=== PATIENT | male | born 1970 | race Caucasian/White ===

== ENCOUNTER 2019-05-08 21:46 | Inpatient (IN) | payer BC ==
[2019-05-08 22:07] LABS: Glucose,Whole Blood 246 mg/dL (75-99)
--- NOTE | 2019-05-08 22:24 | ED ---
Chest Pain HPI - General Chief Complaint: Chest Pain Stated Complaint: Chest Pain, Syncope Time Seen by Provider: 05/08/19 22:07 Source: patient, RN notes reviewed, old records reviewed Mode of arrival: ambulatory Limitations: no limitations - History of Present Illness Initial Comments: This is a 49-year-old male the ER for evaluation with high blood pressure high cholesterol Y. Patient is today for evaluation with coughing. Coughing fit that was a syncope and now complaining of chest pain. Patient has no shortness of breath.No diaphoresis. Patient has no recent cardiac evaluation. Patient's chest pain is been persistent no trauma to that area. MD Complaint: chest pain, other (Coughing leading to syncope) -: days(s) Onset: during rest Pain Location: left chest Severity: mild Severity scale (1-10): 1 Quality: tightness, heaviness Consistency: constant Improves With: nothing Anginal Symptoms: dyspnea Other Symptoms: cough Treatments Prior to Arrival: none - Related Data Home Medications Medication Instructions Recorded Confirmed Allopurinol [Zyloprim] 300 mg PO DAILY 05/08/19 05/08/19 Atorvastatin [Lipitor] 40 mg PO HS 05/08/19 05/08/19 Fenofibrate Nanocrystallized 145 mg PO DAILY 05/08/19 05/08/19 [Fenofibrate] Levothyroxine Sodium [Synthroid] 75 mcg PO DAILY 05/08/19 05/08/19 Metoprolol Succinate (ER) [Toprol 50 mg PO DAILY 05/08/19 05/08/19 Xl] RABEprazole SODIUM [Aciphex] 20 mg PO DAILY 05/08/19 05/08/19 amLODIPine BESYLATE/BENAZEPRIL 1 cap PO DAILY 05/08/19 05/08/19 [Lotrel 10-40 MG] Allergies Allergy/AdvReac Type Severity Reaction Status Date / Time No Known Allergies Allergy Verified 05/08/19 22:18 Review of Systems ROS Statement: Those systems with pertinent positive or pertinent negative responses have been documented in the HPI. ROS Other: All systems not noted in ROS Statement are negative. EKG Findings - EKG Comments: EKG Findings:: EKG shows sinus rhythm rate of 79, PA 180, QRS 90, QTc 449 Past Medical History Past Medical History: Diabetes Mellitus, GERD/Reflux, Hyperlipidemia, Hypertension History of Any Multi-Drug Resistant Organisms: None Reported Additional Past Surgical History / Comment(s): ENT Past Psychological History: No Psychological Hx Reported Smoking Status: Never smoker Past Alcohol Use History: None Reported Past Drug Use History: Marijuana General Exam Limitations: no limitations General appearance: alert, in no apparent distress Head exam: Present: atraumatic, normocephalic, normal inspection Eye exam: Present: normal appearance, PERRL, EOMI. Absent: scleral icterus, conjunctival injection, periorbital swelling ENT exam: Present: normal exam, mucous membranes moist Neck exam: Present: normal inspection. Absent: tenderness, meningismus, lymphadenopathy Respiratory exam: Present: normal lung sounds bilaterally. Absent: respiratory distress, wheezes, rales, rhonchi, stridor Cardiovascular Exam: Present: regular rate, normal rhythm, normal heart sounds. Absent: systolic murmur, diastolic murmur, rubs, gallop, clicks GI/Abdominal exam: Present: soft, normal bowel sounds. Absent: distended, tenderness, guarding, rebound, rigid Extremities exam: Present: normal inspection, full ROM, normal capillary refill. Absent: tenderness, pedal edema, joint swelling, calf tenderness Back exam: Present: normal inspection Neurological exam: Present: alert, oriented X3, CN II-XII intact Psychiatric exam: Present: normal affect, normal mood Skin exam: Present: warm, dry, intact, normal color. Absent: rash Course Vital Signs 05/08/19 05/08/19 05/08/19 21:47 23:00 23:04 Temperature 98 F Pulse Rate 80 80 80 Respiratory 18 18 17 Rate Blood Pressure 123/82 120/84 120/84 O2 Sat by Pulse 99 94 L 96 Oximetry 05/08/19 05/08/19 23:30 23:40 Temperature Pulse Rate 80 82 Respiratory 19 17 Rate Blood Pressure 114/90 113/76 O2 Sat by Pulse 94 L 95 Oximetry - Reevaluation(s) Reevaluation #1: 05/09/19 00:44 Medical records reviewed Reevaluation #2: 05/09/19 00:44 Patient similar chest pain Reevaluation #3: 05/09/19 00:44 No recurrent syncope Chest Pain MDM - MDM 50 male the ER for evaluation of syncopal event after coughing episode he did hit his had no significant headache. His had chest pain persistent chest no trauma to the area. History of high blood pressure high cholesterol admit for cardiac observation Disposition Clinical Impression: Chest pain, Syncope Disposition: ADMITTED IP TO THIS HOSP Condition: Undetermined Is patient prescribed a controlled substance at d/c from ED?: No Referrals: Bhumi Choi DO [Primary Care Provider] - 1-2 days
[2019-05-08 22:26] LABS: Basophils # (A) 0.1 k/uL (0-0.2); Basophils % (A) 1 %; Eosinophils # (A) 0.5 k/uL (0-0.7); Eosinophils % (A) 5 %; HCT 39.5 % (39.0-53.0); HGB 13.2 gm/dL (13.0-17.5); Lymphocytes # (A) 2.5 k/uL (1.0-4.8); Lymphocytes % (A) 26 %; MCH 31.4 pg (25.0-35.0); MCHC 33.4 g/dL (31.0-37.0); MCV 93.9 fL (80.0-100.0); Mean Platelet Volume 6.6; Monocytes # (A) 0.6 k/uL (0-1.0); Monocytes % (A) 6 %; Neutrophils # (A) 5.5 k/uL (1.3-7.7); Neutrophils % (A) 59 %; Platelet Count 306 k/uL (150-450); WBC 9.4 k/uL (3.8-10.6)
[2019-05-08 22:38] LABS: ALT 24 U/L (21-72); AST 37 U/L (17-59); African American GFR (CKD) >90 (>60 ml/min/1.73 sqM); Albumin 4.4 g/dL (3.5-5.0); Alkaline Phosphatase 41 U/L (38-126); Anion Gap 15 mmol/L; Blood Urea Nitrogen 12 mg/dL (9-20); Calcium 9.4 mg/dL (8.4-10.2); Carbon Dioxide 20 mmol/L (22-30); Chloride 94 mmol/L (98-107); Glucose 252 mg/dL (74-99); Magnesium 1.8 mg/dL (1.6-2.3); Non-African American GFR(CKD) 84 (>60 ml/min/1.73 sqM); Potassium 4.1 mmol/L (3.5-5.1); Sodium 129 mmol/L (137-145); Total Bilirubin 0.6 mg/dL (0.2-1.3); Total Protein 7.1 g/dL (6.3-8.2)
[2019-05-08 22:41] LABS: INR 0.9 (<1.2); Partial Thromboplastin Time 28.3 sec (22.0-30.0); Prothrombin Time 10.2 sec (9.0-12.0)
[2019-05-08 22:46] LABS: D-Dimer 1.78 mg/L FEU (<0.60)
--- NOTE | 2019-05-08 22:49 | XR ---
EXAM: XR Chest, 2 Views CLINICAL HISTORY: ITS.REASON XR Reason: Chest Pain TECHNIQUE: Frontal and lateral views of the chest. COMPARISON: No relevant prior studies available. FINDINGS: Lungs: Mild perihilar/infrahilar opacities. Pleural space: No significant pleural effusion or pneumothorax. Heart: Unremarkable. Mediastinum: Unremarkable. Bones/joints: No acute fracture. Other: Air-fluid levels noted in the upper abdomen. IMPRESSION: Mild perihilar/infrahilar opacities. Correlate clinically regarding inflammatory/infectious process.
--- NOTE | 2019-05-08 23:58 | CT ---
EXAM: CT Angiography Chest With Intravenous Contrast CLINICAL HISTORY: ITS.REASON CT Reason: Pain TECHNIQUE: Axial computed tomographic angiography images of the chest with intravenous contrast using pulmonary embolism protocol. CTDI is 9.2 mGy and DLP is 397.8 mGy-cm. This CT exam was performed using one or more of the following dose reduction techniques: automated exposure control, adjustment of the mA and/or kV according to patient size, and/or use of iterative reconstruction technique. MIP reconstructed images were created and reviewed. COMPARISON: No relevant prior studies available. FINDINGS: Pulmonary arteries: No evidence of pulmonary embolism. Aorta: No evidence of aortic aneurysm or dissection. Atherosclerotic disease. Lungs: Bilateral peribronchial thickening. No consolidation. Pleural space: No significant effusion. No pneumothorax. Heart: Unremarkable. Bones/joints: Ankylosis at T9-10. Soft tissues: Unremarkable as visualized. Lymph nodes: Nonspecific stranding in the upper abdomen with prominent mesenteric lymph nodes. Small mediastinal and hilar lymph nodes. Liver: Heterogeneous liver parenchyma. Gallbladder and bile ducts: Contracted gallbladder. Pancreas: Dilated pancreatic duct, cannot exclude obstructing stone or mass. Kidneys and ureters: Nonspecific bilateral perinephric stranding. IMPRESSION: 1. No evidence of PE or aortic dissection. 2. Bilateral peribronchial thickening. No consolidation. 3. Nonspecific stranding in the upper abdomen with prominent mesenteric lymph nodes. Differential considerations include mesenteric adenitis/panniculitis, pancreatitis, or other etiology 4. Dilated pancreatic duct, cannot exclude obstructing stone or mass. MRCP/ERCP can further evaluate if indicated. 5. Heterogeneous liver parenchyma. MRI may be considered if there is concern for neoplastic process.
[2019-05-09] MEDS ORDERED: NITROGLYCERIN SL TABS 0.4 MG TAB SUBLINGUAL PRN (00:38)
[2019-05-09] MEDS ORDERED: HEPARIN SODIUM,PORCINE 5,000 UNIT/ML 1 ML VIAL IV ONE (00:38)
[2019-05-09] MEDS ORDERED: ASPIRIN 81 MG PO STA (00:38)
[2019-05-09] MEDS ORDERED: HEPARIN SODIUM,PORCINE 5,000 UNIT/ML 1 ML VIAL IV PRN (00:38)
[2019-05-09] MEDS: SODIUM CHLORIDE 0.9% 1,000 ML IV SCH ×3 (01:01→21:52)
[2019-05-09] MEDS: HEPARIN SOD,PORK IN 0.45% NACL 25,000 UNIT in 0.45% NACL 1 250ML.BAG IV SCH ×2 (01:10→21:59)
--- NOTE | 2019-05-09 01:38 | CT ---
EXAM: CT Head Without Intravenous Contrast CLINICAL HISTORY: ITS.REASON CT Reason: pain TECHNIQUE: Axial computed tomography images of the head/brain without intravenous contrast. CTDI is 45.2, 14.3 mGy and DLP is 1481.6 mGy-cm. This CT exam was performed using one or more of the following dose reduction techniques: automated exposure control, adjustment of the mA and/or kV according to patient size, and/or use of iterative reconstruction technique. COMPARISON: No relevant prior studies available. FINDINGS: Brain: No hemorrhage. No acute cortical infarct. No mass effect or midline shift. Involutional changes. Ventricles: Ventriculomegaly, may be related to volume loss or other etiologies. Bones/joints: No acute fracture. Soft tissues: Scalp soft tissue swelling. Sinuses: Mild sinus disease. Mastoid air cells: Trace mastoid fluid. IMPRESSION: No intracranial hemorrhage or skull fracture. EXAM: CT Cervical Spine Without Intravenous Contrast CLINICAL HISTORY: ITS.REASON CT Reason: pain TECHNIQUE: Axial computed tomography images of the cervical spine without intravenous contrast. CTDI is 45.2, 14.3 mGy and DLP is 1481.6 mGy-cm. This CT exam was performed using one or more of the following dose reduction techniques: automated exposure control, adjustment of the mA and/or kV according to patient size, and/or use of iterative reconstruction technique. COMPARISON: No relevant prior studies available. FINDINGS: Vertebrae: No acute fracture. No subluxation. Discs/spinal canal/neural foramina: Degenerative changes. Soft tissues: Unremarkable. IMPRESSION: No acute fracture.
[2019-05-09 02:47] VITALS: BMI 30.4
[2019-05-09 04:21] LABS: Mean Platelet Volume 7.5; Platelet Count 292 k/uL (150-450)
[2019-05-09 06:34] LABS: Glucose,Whole Blood 230 mg/dL (75-99)
[2019-05-09] MEDS: LISINOPRIL 20 MG TAB PO SCH (10:25)
[2019-05-09] MEDS: METOPROLOL SUCCINATE (ER) 50 MG TAB.ER.24H PO SCH (10:26)
[2019-05-09] MEDS: LEVOTHYROXINE 75 MCG TAB PO SCH (10:26)
[2019-05-09] MEDS: ALLOPURINOL 300 MG TAB PO SCH (10:26)
[2019-05-09] MEDS: amLODIPine 10 MG TAB PO SCH (10:26)
--- NOTE | 2019-05-09 14:03 | P.HPIM ---
History of Present Illness H&P Date: 05/09/19 Chief Complaint: syncope Oscar Jacobs is a 49 yo M with PMH of HTN, HLD who presented to [facility] ED after a syncopal episode at home. He states he was standing up near his couch and began coughing persistently, his vision then went dark and pt came to on the couch a few moments later. He states he hit his head and his chest on the way down. Pt does note multiple prior instances of coughing fit leading to lightheadedness and presyncope, but this is the first time he passed out completely. He denies confusion, shaking or loss of bowel or bladder function. He denies chest pain or pressure with exertion. Denies tobacco and etoh use. In the ED, vitals stable CT head and CTA chest negative, EKG normal and troponin negative x3. On exam he complains of continued chest pain/soreness but attributes this to hitting his chest while falling. Review of Systems All systems: negative Constitutional: Denies chills, Denies fever Eyes: denies blurred vision, denies pain Ears, nose, mouth and throat: Denies headache, Denies sore throat Cardiovascular: Reports chest pain, Denies shortness of breath Respiratory: Denies cough Gastrointestinal: Denies abdominal pain, Denies diarrhea, Denies nausea, Denies vomiting Musculoskeletal: Denies myalgias Integumentary: Denies pruritus, Denies rash Neurological: Reports syncope, Denies numbness, Denies weakness, Denies visual changes Psychiatric: Denies anxiety, Denies depression Endocrine: Denies fatigue, Denies weight change Past Medical History Past Medical History: Diabetes Mellitus, GERD/Reflux, Hyperlipidemia, Hypertension History of Any Multi-Drug Resistant Organisms: None Reported Additional Past Surgical History / Comment(s): ENT Past Anesthesia/Blood Transfusion Reactions: No Reported Reaction Past Psychological History: No Psychological Hx Reported Smoking Status: Never smoker Past Alcohol Use History: None Reported Past Drug Use History: Marijuana - Past Family History Mother History Unknown: Yes Father History Unknown: Yes Medications and Allergies Home Medications Medication Instructions Recorded Confirmed Type Allopurinol [Zyloprim] 300 mg PO DAILY 05/08/19 05/08/19 History Atorvastatin [Lipitor] 40 mg PO HS 05/08/19 05/08/19 History Fenofibrate Nanocrystallized 145 mg PO DAILY 05/08/19 05/08/19 History [Fenofibrate] Levothyroxine Sodium [Synthroid] 75 mcg PO DAILY 05/08/19 05/08/19 History Metoprolol Succinate (ER) [Toprol 50 mg PO DAILY 05/08/19 05/08/19 History Xl] RABEprazole SODIUM [Aciphex] 20 mg PO DAILY 05/08/19 05/08/19 History amLODIPine BESYLATE/BENAZEPRIL 1 cap PO DAILY 05/08/19 05/08/19 History [Lotrel 10-40 MG] Allergies Allergy/AdvReac Type Severity Reaction Status Date / Time No Known Allergies Allergy Verified 05/08/19 22:18 Physical Exam Vitals: Vital Signs Temp Pulse Pulse Resp BP BP Pulse Ox 05/09/19 12:00 98.2 F 82 16 123/90 93 L 05/09/19 08:00 98.2 F 87 16 126/84 94 L 05/09/19 03:33 88 16 125/85 95 05/09/19 02:37 98.0 F 91 18 129/84 95 05/08/19 23:40 82 17 113/76 95 05/08/19 23:30 80 19 114/90 94 L 05/08/19 23:04 80 17 120/84 96 05/08/19 23:00 80 18 120/84 94 L 05/08/19 21:47 98 F 80 18 123/82 99 Intake and Output 05/08/19 05/09/19 05/09/19 22:59 06:59 14:59 Intake Total 872.514 Output Total 2 Balance -2 872.514 Intake: Intake, IV Titration 872.514 Amount Heparin Sod,Pork in 0.45% 72.514 NaCl 25,000 unit In 0.45 % NaCl 1 250ml.bag @ 11 UNITS/KG/HR 9.979 mls/hr IV .Q24H [facility] Rx#: [id number] Sodium Chloride 0.9% 1, 800 000 ml @ 100 mls/hr IV . Q10H [facility] Rx#:[id number] Output: Urine 2 Other: Voiding Method Toilet # Voids 2 Weight 90.718 kg Constitutional: well developed, well nourished, NAD. Vitals reviewed HEENT: normocephalic, atraumatic. Mucus membranes moist. TMs clear. EOMI. PERRLA. Neck: supple. No JVD or thyromegaly CV: RRR, no murmur. Pulses 2+ Lungs: normal respiratory effort. Clear throughout Abd: soft, nontender, no organomegaly Ext: no cynaosis, clubbing or edema Neuro: alert and oriented x3, no sensory deficit Results CBC & Chem 7: 05/09/19 04:10 05/08/19 22:10 Labs: Abnormal Lab Results - Last 24 Hours (Table) 05/08/19 05/08/19 05/08/19 Range/Units 22:06 22:10 22:10 RBC 4.20 L (4.30-5.90) m/uL APTT (22.0-30.0) sec D-Dimer (<0.60) mg/L FEU Sodium 129 L (137-145) mmol/L Chloride 94 L (98-107) mmol/L Carbon Dioxide 20 L (22-30) mmol/L Glucose 252 H (74-99) mg/dL POC Glucose (mg/dL) 246 H (75-99) mg/dL Lipase 11 L (23-300) U/L 05/08/19 05/09/19 05/09/19 Range/Units 22:10 06:30 07:03 RBC (4.30-5.90) m/uL APTT 41.4 H (22.0-30.0) sec D-Dimer 1.78 H (<0.60) mg/L FEU Sodium (137-145) mmol/L Chloride (98-107) mmol/L Carbon Dioxide (22-30) mmol/L Glucose (74-99) mg/dL POC Glucose (mg/dL) 230 H (75-99) mg/dL Lipase (23-300) U/L Thrombosis Risk Factor Assmnt - Choose All That Apply Any of the Below Risk Factors Present?: Yes Each Factor Represents 1 point: Age 41-60 years, Obesity (BMI >25) Other Risk Factors: No Other congenital or acquired thrombophilia - If yes, enter type in comment: No Thrombosis Risk Factor Assessment Total Risk Factor Score: 2 Thrombosis Risk Factor Assessment Level: Low Risk Assessment and Plan (1) Chest pain Current Visit: Yes Status: Acute Code(s): R07.9 - CHEST PAIN, UNSPECIFIED SNOMED Code(s): 30659988 (2) Syncope Current Visit: Yes Status: Acute Code(s): R55 - SYNCOPE AND COLLAPSE SNOMED Code(s): 760028163 Plan: 1. Chest pain. EKG and troponin unremarkable. Given ASA and started on heparin in ED. Cardiology consulted. Continue toprol and statin 2. Syncope and collapse. CT head unremarkable. Suspect vasovagal. Further eval per cardiology 3. HTN. Continue lisinopril and norvasc 4. Hypothyroidism. continue synthroid
--- NOTE | 2019-05-09 14:39 | P.CRDCN ---
History of Present Illness Consult date: 05/09/19 Requesting physician: Jennifer Paz Consult reason: sycope Chief complaint: Syncope History of present illness: This is a pleasant 49-year-old gentleman with history of hypertension, diabetes, hyperlipidemia, hypothyroidism, nonsmoker, who presented to the hospital after experiencing a syncopal episode. According to the patient, he got up in the middle of the night because he was hungry, started eating a bowl of cereal, and then began to cough, he states that he had quite a coughing spell and shortly thereafter passed out, he did hit his head on the way down and also hit his chest wall on the edge of the chair. He states that he has had at least 2 prior episodes similar to this each time following a coughing episode. His chest x-ray on presentation here showed mild. Hilar/infrahilar opacities. CTA of the chest did not reveal evidence of PE or aortic dissection, bilateral peribronchial thickening, nonspecific stranding in the upper abdomen with prominent mesenteric lymph nodes, dilated pancreatic duct and heterogeneous liver. CT of the head was performed which did not reveal any intracranial hemorrhage or skull fracture. EKG shows a normal sinus rhythm with no acute changes. Blood pressure 122/90 with a heart rate in the 80s, 93% on room air. White blood cell count 9.4, hemoglobin 13.2, platelet count 292. D-dimer 1.7, sodium 129, potassium 4.1, BUN 12 and creatinine 1.0. Troponins negative 3. BNP 26. Past Medical History Past Medical History: Diabetes Mellitus, GERD/Reflux, Hyperlipidemia, Hypertension History of Any Multi-Drug Resistant Organisms: None Reported Additional Past Surgical History / Comment(s): ENT Past Anesthesia/Blood Transfusion Reactions: No Reported Reaction Past Psychological History: No Psychological Hx Reported Smoking Status: Never smoker Past Alcohol Use History: None Reported Past Drug Use History: Marijuana - Past Family History Mother History Unknown: Yes Father History Unknown: Yes Medications and Allergies Home Medications Medication Instructions Recorded Confirmed Type Allopurinol [Zyloprim] 300 mg PO DAILY 05/08/19 05/08/19 History Atorvastatin [Lipitor] 40 mg PO HS 05/08/19 05/08/19 History Fenofibrate Nanocrystallized 145 mg PO DAILY 05/08/19 05/08/19 History [Fenofibrate] Levothyroxine Sodium [Synthroid] 75 mcg PO DAILY 05/08/19 05/08/19 History Metoprolol Succinate (ER) [Toprol 50 mg PO DAILY 05/08/19 05/08/19 History Xl] RABEprazole SODIUM [Aciphex] 20 mg PO DAILY 05/08/19 05/08/19 History amLODIPine BESYLATE/BENAZEPRIL 1 cap PO DAILY 05/08/19 05/08/19 History [Lotrel 10-40 MG] Allergies Allergy/AdvReac Type Severity Reaction Status Date / Time No Known Allergies Allergy Verified 05/08/19 22:18 Physical Exam Vitals: Vital Signs Temp Pulse Pulse Resp BP BP Pulse Ox 05/09/19 12:00 98.2 F 82 16 123/90 93 L 05/09/19 08:00 98.2 F 87 16 126/84 94 L 05/09/19 03:33 88 16 125/85 95 05/09/19 02:37 98.0 F 91 18 129/84 95 05/08/19 23:40 82 17 113/76 95 05/08/19 23:30 80 19 114/90 94 L 05/08/19 23:04 80 17 120/84 96 05/08/19 23:00 80 18 120/84 94 L 05/08/19 21:47 98 F 80 18 123/82 99 Intake and Output 05/08/19 05/09/19 05/09/19 22:59 06:59 14:59 Intake Total 872.514 Output Total 2 Balance -2 872.514 Intake: Intake, IV Titration 872.514 Amount Heparin Sod,Pork in 0.45% 72.514 NaCl 25,000 unit In 0.45 % NaCl 1 250ml.bag @ 11 UNITS/KG/HR 9.979 mls/hr IV .Q24H [facility] Rx#: [id number] Sodium Chloride 0.9% 1, 800 000 ml @ 100 mls/hr IV . Q10H [facility] Rx#:[id number] Output: Urine 2 Other: Voiding Method Toilet # Voids 2 Weight 90.718 kg PHYSICAL EXAMINATION: GENERAL: 49-year-old gentleman in no acute distress at the time of my examination HEENT: Small reddened area of abrasion noted to the left forehead , head is normocephalic. Pupils equal, round. Sclera anicteric. Conjunctiva are clear. Mucous membranes of the mouth are moist. Neck is supple. There is no elevated jugular venous pressure. No Carotid] bruit is heard. HEART EXAMINATION: Heart S1, S2 normal. No murmur or gallop heard. CHEST EXAMINATION: Lungs are clear to auscultation and precussion. Positive chest wall tenderness is noted on palpation and with deep breathing. ABDOMEN: Soft, nontender. Bowel sounds are heard. No organomegaly noted. EXTREMITIES: 2+ peripheral pulses with no evidence of peripheral edema and no calf tenderness noted. NEUROLOGIC patient is awake, alert and oriented X3. . Results 05/09/19 04:10 05/08/19 22:10 Cardiac Enzymes 05/08/19 05/08/19 05/09/19 Range/Units 22:10 22:10 04:09 AST 37 (17-59) U/L Troponin I <0.012 <0.012 (0.000-0.034) ng/mL 05/09/19 Range/Units 10:56 AST (17-59) U/L Troponin I <0.012 (0.000-0.034) ng/mL Coagulation 05/08/19 05/09/19 Range/Units 22:10 07:03 PT 10.2 (9.0-12.0) sec APTT 28.3 41.4 H (22.0-30.0) sec CBC 05/08/19 05/09/19 Range/Units 22:10 04:10 WBC 9.4 (3.8-10.6) k/uL RBC 4.20 L (4.30-5.90) m/uL Hgb 13.2 (13.0-17.5) gm/dL Hct 39.5 (39.0-53.0) % Plt Count 306 292 (150-450) k/uL Comprehensive Metabolic Panel 05/08/19 Range/Units 22:10 Sodium 129 L (137-145) mmol/L Potassium 4.1 (3.5-5.1) mmol/L Chloride 94 L (98-107) mmol/L Carbon Dioxide 20 L (22-30) mmol/L BUN 12 (9-20) mg/dL Creatinine 1.03 (0.66-1.25) mg/dL Glucose 252 H (74-99) mg/dL Calcium 9.4 (8.4-10.2) mg/dL AST 37 (17-59) U/L ALT 24 (21-72) U/L Alkaline Phosphatase 41 (38-126) U/L Total Protein 7.1 (6.3-8.2) g/dL Albumin 4.4 (3.5-5.0) g/dL Current Medications Generic Name Dose Route Start Last Admin Trade Name Freq PRN Reason Stop Dose Admin Allopurinol 300 mg 05/09/19 09:15 05/09/19 10:26 Zyloprim PO 300 mg DAILY [facility]NN Administration Amlodipine Besylate 10 mg 05/09/19 09:15 05/09/19 10:26 Norvasc PO 10 mg DAILY [facility]NN Administration Aspirin 325 mg 05/10/19 09:[address] [facility] Atorvastatin Calcium 40 mg 05/09/19 21:00 Lipitor PO HS [facility]NN Heparin Sodium (Porcine) 0 unit 05/09/19 00:38 05/09/19 08:26 Heparin IV 2,267 unit Q6HR PRN Administration Low PTT Protocol Heparin Sodium/Sodium Chloride 250 mls @ 9.979 mls/hr 05/09/19 00:45 05/09/19 08:26 25,000 unit/ Sodium Chloride IV 1,177 units/kg/hr .Q24H [facility] 1,067.751 mls/hr Titration Protocol 11 UNITS/KG/HR Sodium Chloride 1,000 mls @ 100 mls/hr 05/09/19 00:45 05/09/19 10:26 Saline 0.9% IV 100 mls/hr .Q10H [facility] Administration Levothyroxine Sodium 75 mcg 05/09/19 09:15 05/09/19 10:26 Synthroid PO 75 mcg DAILY@0630 [facility] Administration Lisinopril 40 mg 05/09/19 09:15 05/09/19 10:25 Zestril PO 40 mg DAILY [facility] Administration Metoprolol Succinate 50 mg 05/09/19 09:15 05/09/19 10:26 Toprol Xl PO 50 mg DAILY [facility] Administration Nitroglycerin 0.4 mg 05/09/19 00:38 Nitrostat SUBLINGUAL Q5M PRN Chest Pain Intake and Output 05/08/19 05/09/19 05/09/19 22:59 06:59 14:59 Intake Total 872.514 Output Total 2 Balance -2 872.514 Intake: Intake, IV Titration 872.514 Amount Heparin Sod,Pork in 0.45% 72.514 NaCl 25,000 unit In 0.45 % NaCl 1 250ml.bag @ 11 UNITS/KG/HR 9.979 mls/hr IV .Q24H [facility] Rx#: [id number] Sodium Chloride 0.9% 1, 800 000 ml @ 100 mls/hr IV . Q10H [facility] Rx#:[id number] Output: Urine 2 Other: Voiding Method Toilet # Voids 2 Weight 90.718 kg 05/09/19 04:10 05/08/19 22:10 EKG Interpretations (text) EKG shows normal sinus rhythm with no acute changes Assessment and Plan Plan: Assessment and plan #1 syncope, suggestive of possible cough syncope. Patient had prior episodes of syncope both times related to coughing spells. #2 hypertension #3 diabetes #4 hyperlipidemia #5 hypothyroidism Plan We will obtain an echocardiogram with Doppler study. We will continue to monitor for any tachycardia or bradycardia arrhythmias, check orthostatic heart rate and blood pressure every shift. Further recommendations to follow. DNP note has been reviewed, I agree with a documented findings and plan of care. Patient was seen and examined.
[2019-05-09 17:01] LABS: Glucose,Whole Blood 171 mg/dL (75-99)
[2019-05-09 20:25] LABS: Glucose,Whole Blood 195 mg/dL (75-99)
[2019-05-09] MEDS ORDERED: ATORVASTATIN 40 MG TAB PO SCH (21:00)
[2019-05-10 06:07] LABS: Glucose,Whole Blood 155 mg/dL (75-99)
[2019-05-10] MEDS: LEVOTHYROXINE 75 MCG TAB PO SCH (06:22)
[2019-05-10] MEDS: SODIUM CHLORIDE 0.9% 1,000 ML IV SCH ×2 (06:23→10:38)
[2019-05-10 07:22] LABS: Mean Platelet Volume 7.3; Platelet Count 315 k/uL (150-450)
[2019-05-10 08:02] LABS: Cholesterol 129 mg/dL (<200); HDL Cholesterol 55 mg/dL (40-60); LDL Cholesterol,Calculated 44 mg/dL (0-99); Triglycerides 151 mg/dL (<150)
[2019-05-10] MEDS: METOPROLOL SUCCINATE (ER) 50 MG TAB.ER.24H PO SCH (08:45)
[2019-05-10] MEDS: ALLOPURINOL 300 MG TAB PO SCH (08:46)
[2019-05-10] MEDS: amLODIPine 10 MG TAB PO SCH (08:46)
[2019-05-10] MEDS ORDERED: ASPIRIN 325 MG TAB PO SCH (09:00)
[2019-05-10] MEDS: LISINOPRIL 20 MG TAB PO SCH (09:57)
[2019-05-10 10:30] VITALS: RESP 18
--- NOTE | 2019-05-10 11:13 | P.PN ---
Subjective Progress Note Date: 05/10/19 This is a pleasant 49-year-old gentleman with history of hypertension, diabetes, hyperlipidemia, hypothyroidism, nonsmoker, who presented to the hospital after experiencing a syncopal episode. According to the patient, he got up in the middle of the night because he was hungry, started eating a bowl of cereal, and then began to cough, he states that he had quite a coughing spell and shortly thereafter passed out, he did hit his head on the way down and also hit his chest wall on the edge of the chair. He states that he has had at least 2 prior episodes similar to this each time following a coughing episode. His chest x-ray on presentation here showed mild. Hilar/infrahilar opacities. CTA of the chest did not reveal evidence of PE or aortic dissection, bilateral peribronchial thickening, nonspecific stranding in the upper abdomen with prominent mesenteric lymph nodes, dilated pancreatic duct and heterogeneous liver. CT of the head was performed which did not reveal any intracranial hemorrhage or skull fracture. EKG shows a normal sinus rhythm with no acute changes. Blood pressure 122/90 with a heart rate in the 80s, 93% on room air. White blood cell count 9.4, hemoglobin 13.2, platelet count 292. D-dimer 1.7, sodium 129, potassium 4.1, BUN 12 and creatinine 1.0. Troponins negative 3. BNP 26. 05/10/2019 Patient was seen and examined this morning, no further coughing episodes, no syncopal episodes. Hemodynamically stable with no evidence of any orthostatic h ypotension. No arrhythmias noted on the monitor. Patient had an echocardiogram with Doppler study performed results of which are yet pending. Blood pressure 118/80 with a heart rate in the 80s, 93% on room air. Objective - Vital Signs Vital signs: Vital Signs Temp 97.3 F L 05/10/19 09:00 Pulse 89 05/10/19 09:00 Resp 18 05/10/19 09:00 BP 118/82 05/10/19 09:00 Pulse Ox 93 L 05/10/19 09:00 Intake & Output 05/09/19 05/10/19 05/10/19 18:59 06:59 18:59 Intake Total 1230.000 300 Balance 1230.000 300 Weight 89.6 kg 88 kg Intake: Intake, IV Titration 1050.000 Amount Heparin Sod,Pork in 0.45% 250.000 NaCl 25,000 unit In 0.45 % NaCl 1 250ml.bag @ 11 UNITS/KG/HR 9.979 mls/hr IV .Q24H [facility] Rx#: [id number] Sodium Chloride 0.9% 1, 800 000 ml @ 100 mls/hr IV . Q10H [facility] Rx#:[id number] Oral 180 300 Other: Voiding Method Toilet Toilet Toilet # Voids 2 1 # Bowel Movements 1 - Exam PHYSICAL EXAMINATION: GENERAL: 49-year-old gentleman in no acute distress at the time of my examination HEENT: Small reddened area of abrasion noted to the left forehead , head is normocephalic. Pupils equal, round. Sclera anicteric. Conjunctiva are clear. Mucous membranes of the mouth are moist. Neck is supple. There is no elevated jugular venous pressure. No Carotid] bruit is heard. HEART EXAMINATION: Heart S1, S2 normal. No murmur or gallop heard. CHEST EXAMINATION: Lungs are clear to auscultation and precussion. Positive chest wall tenderness is noted on palpation and with deep breathing. ABDOMEN: Soft, nontender. Bowel sounds are heard. No organomegaly noted. EXTREMITIES: 2+ peripheral pulses with no evidence of peripheral edema and no calf tenderness noted. NEUROLOGIC patient is awake, alert and oriented X3. - Labs CBC & Chem 7: 05/10/19 07:06 05/08/19 22:10 Labs: Abnormal Lab Results - Last 24 Hours (Table) 05/09/19 05/09/19 05/09/19 Range/Units 14:55 16:58 20:23 APTT 58.2 H (22.0-30.0) sec POC Glucose (mg/dL) 171 H 195 H (75-99) mg/dL Triglycerides (<150) mg/dL 05/10/19 05/10/19 05/10/19 Range/Units 06:04 07:06 07:06 APTT 49.3 H (22.0-30.0) sec POC Glucose (mg/dL) 155 H (75-99) mg/dL Triglycerides 151 H (<150) mg/dL Assessment and Plan Plan: Assessment and plan #1 syncope, suggestive of possible cough syncope. Patient had prior episodes of syncope both times related to coughing spells. #2 hypertension #3 diabetes #4 hyperlipidemia #5 hypothyroidism Plan We will review the echocardiogram with Doppler study. Patient may be di scharged home today from cardiology's perspective, we'll make him a follow-up appointment in the office post discharge. DNP note has been reviewed, I agree with a documented findings and plan of care. Patient was seen and examined.
[2019-05-10 11:56] VITALS: BP 119/76; PULSE 82; TEMP 97.9
--- NOTE | 2019-05-10 11:56 | P.DS ---
Providers Date of admission: 05/09/19 00:39 Expected date of discharge: 05/10/19 Attending physician: Tj Orlando MD Consults: 05/09/19 00:39 Consult Physician Urgent Consulting Provider: Hannah Crenshaw Consult Reason/Comments: cp Do you want consulting provider notified?: Yes Primary care physician: Bhumi Choi [facility] Course: Final Diagnoses: (1) Chest pain Current Visit: Yes Status: Acute Code(s): R07.9 - CHEST PAIN, UNSPECIFIED SNOMED Code(s): 63309211 (2) Syncope, suspect vasovagal, as it occurred after coughing Current Visit: Yes Status: Acute Code(s): R55 - SYNCOPE AND COLLAPSE SNOMED Code(s): 154201998 Hospital course :Oscar Jacobs is a 49 yo M with PMH of HTN, HLD who presented to [facility] ED after a syncopal episode at home. He states he was standing up near his couch and began coughing persistently, his vision then went dark and pt came to on the couch a few moments later. He states he hit his head and his chest on the way down. Pt does note multiple prior instances of coughing fit leading to lightheadedness and presyncope, but this is the first time he passed out completely. He denies confusion, shaking or loss of bowel or bladder function. He denies chest pain or pressure with exertion. Denies tobacco and etoh use. In the ED, vitals stable CT head and CTA chest negative, EKG normal and troponin negative x3. On exam he complains of continued chest pain/soreness but attributes this to hitting his chest while falling. Coughing has subsided, no further syncope spells. Vital signs stable. Orthostatic hypotension ruled out. Telemetry reporting no arrhythmias. Echo pending. Patient may be discharged home in a stable condition with guarded prognosis pending cardiology clearance. Recommend Holter monitor 2 weeks. Constitutional: well developed, well nourished, NAD. HEENT: normocephalic, atraumatic. Mucus membranes moist. TMs clear. EOMI. PERRLA. Neck: supple. No JVD or thyromegaly CV: RRR, no murmur. Pulses 2+ Lungs: normal respiratory effort. Clear throughout Abd: soft, nontender, no organomegaly Ext: no cynaosis, clubbing or edema Neuro: alert and oriented x3, no sensory deficit The impression and plan of care has been dictated as directed. : I performed a history and examination of this patient, discussed the same with the dictator. I agree with the dictator's note ,documented as a scribe. Any additional findings or plans will be noted. Time taken: 35 minutes Patient Condition at Discharge: Stable Plan - Discharge Summary New Discharge Prescriptions: Continue Metoprolol Succinate (ER) [Toprol XL] 50 mg PO DAILY Levothyroxine Sodium [Synthroid] 75 mcg PO DAILY Fenofibrate Nanocrystallized [Fenofibrate] 145 mg PO DAILY Atorvastatin [Lipitor] 40 mg PO HS amLODIPine BESYLATE/BENAZEPRIL [Lotrel 10-40 MG] 1 cap PO DAILY RABEprazole SODIUM [Aciphex] 20 mg PO DAILY Allopurinol [Zyloprim] 300 mg PO DAILY Discharge Medication List Allopurinol [Zyloprim] 300 mg PO DAILY 05/08/19 [History] Atorvastatin [Lipitor] 40 mg PO HS 05/08/19 [History] Fenofibrate Nanocrystallized [Fenofibrate] 145 mg PO DAILY 05/08/19 [History] Levothyroxine Sodium [Synthroid] 75 mcg PO DAILY 05/08/19 [History] Metoprolol Succinate (ER) [Toprol XL] 50 mg PO DAILY 05/08/19 [History] RABEprazole SODIUM [Aciphex] 20 mg PO DAILY 05/08/19 [History] amLODIPine BESYLATE/BENAZEPRIL [Lotrel 10-40 MG] 1 cap PO DAILY 05/08/19 [History] Follow up Appointment(s)/Referral(s): Pranay Painter MD [STAFF PHYSICIAN] - 05/25/19 3:15 pm (Please arrive at 3:00 PM for appointment.) Bhumi Choi DO [Primary Care Provider] - 05/18/19 9:15 am Patient Instructions/Handouts: Syncope (DC) Activity/Diet/Wound Care/Special Instructions: Echo pending .OUTPATIENT HOLTER MONITOR FOR 2 WEEKS
[2019-05-10 12:14] LABS: Glucose,Whole Blood 172 mg/dL (75-99)
--- NOTE | 2019-05-10 12:59 | ECHOF ---
Referral Reason:syncope MEASUREMENTS -------- HEIGHT: 172.7 cm WEIGHT: 88.0 kg BP: 123/90 RVIDd: 4.2 cm (< 3.3) IVSd: 1.3 cm (0.6 - 1.1) LVIDd: 3.8 cm (3.9 - 5.3) LVPWd: 1.4 cm (0.6 - 1.1) IVSs: 1.9 cm LVIDs: 2.2 cm LVPWs: 1.3 cm LAESV Index (A-L): 21.19 ml/m Ao Diam: 3.1 cm (2.0 - 3.7) AV Cusp: 1.3 cm (1.5 - 2.6) LA Diam: 1.7 cm (2.7 - 3.8) EPSS: 0.8 cm MV E Duy: 0.93 m/s MV DecT: 225 ms MV A Duy: 0.73 m/s MV E/A Ratio: 1.27 RAP: 5.00 mmHg RVSP: 17.99 mmHg MV EF SLOPE: 59.00 mm/s (70 - 150) MV EXCURSION: 1.65 cm (> 18.000) FINDINGS -------- Sinus rhythm. This was a technically difficult study with suboptimal parasternal views. The left ventricular size is normal. There is mild concentric left ventricular hypertrophy. Overa ll left ventricular systolic function is normal with, an EF between 55 - 60 %. The diastolic fillin g pattern is normal for the age of the patient. The right ventricle is mild to moderately enlarged. Left atrium is normal size by volume. The right atrial size is normal. Lumason used Interatrial and interventricular septum intact. The aortic valve was not well visualized. There is no evidence of aortic regurgitation. There is no evidence of aortic stenosis. There is trace mitral regurgitation. Mild tricuspid regurgitation present. There is no evidence of pulmonary hypertension. The right v entricular systolic pressure, as measured by Doppler, is 17.99mmHg. The pulmonic valve was not well visualized. The aortic root size is normal. IVC not well visulized There is no pericardial effusion. CONCLUSIONS -------- 1. Sinus rhythm. 2. This was a technically difficult study with suboptimal parasternal views. 3. The left ventricular size is normal. 4. There is mild concentric left ventricular hypertrophy. 5. Overall left ventricular systolic function is normal with, an EF between 55 - 60 %. 6. The diastolic filling pattern is normal for the age of the patient. 7. Left atrium is normal size by volume. 8. The right atrial size is normal. 9. Lumason used 10. Interatrial and interventricular septum intact. 11. The aortic valve was not well visualized. 12. There is no evidence of aortic regurgitation. 13. There is no evidence of aortic stenosis. 14. There is trace mitral regurgitation. 15. There is no evidence of pulmonary hypertension. 16. The right ventricular systolic pressure, as measured by Doppler, is 17.99mmHg. 17. The pulmonic valve was not well visualized. 18. The aortic root size is normal. 19. IVC not well visulized 20. There is no pericardial effusion. BRAKE ASSEMBLER: Kim Zamorano RDCS
[2019-05-11] MEDS ORDERED: ASPIRIN 81 MG PO SCH (09:00)
[2019-05-11] MEDS ORDERED: LISINOPRIL 20 MG TAB PO SCH (09:00)
--- NOTE | 2019-05-26 13:05 | EM ---
EVENT MONITOR This 14-day event monitor shows sinus rhythm and sinus tachycardia. No arrhythmias noted. IMPRESSION: Normal event monitor recording. MMODL / IJN: [id number] /
== END 2019-05-10 13:41 | disposition home or self-care (01) | DRG 312 ==
LOC: EC 21:46 → 3SCARD 05-09 00:39
PROVIDERS: ADMIT Family Medicine; ATTEND Family Medicine
DX: R55 Syncope and collapse (principal); R05 Cough; R07.9 Chest pain, unspecified; W18.30XA Fall on same level, unspecified, initial encounter; Y92.019 Unspecified place in single-family (private) house as the place of occurrence of the external cause; I10 Essential (primary) hypertension; S00.81XA Abrasion of other part of head, initial encounter; E78.5 Hyperlipidemia, unspecified; E03.9 Hypothyroidism, unspecified; K21.9 Gastro-esophageal reflux disease without esophagitis; E11.9 Type 2 diabetes mellitus without complications; Z79.899 Other long term (current) drug therapy; Z79.890 Hormone replacement therapy
CPT/HCPCS: 36415; 70450; 71046; 71275; 72125; 80053; 80061; 83690; 83735; 83880; 84484; 85025; 85049; 85379; 85610; 85730; 93005; 93270; 93306; 96365; 96366; 96376; 99285

== ENCOUNTER 2021-01-12 17:49 | Emergency (ER) | payer OTHER, BC ==
[2021-01-12] MEDS ORDERED: DIPH,PERTUS(ACELL)TETVAC-LF 0.5 ML VIAL IM ONE (17:56)
[2021-01-12 17:57] VITALS: RESP 18
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
[2021-01-12 18:16] LABS: Basophils # (A) 0.1 k/uL (0-0.2); Basophils % (A) 1 %; Eosinophils # (A) 0.3 k/uL (0-0.7); Eosinophils % (A) 4 %; HCT 38.1 % (39.0-53.0); HGB 13.3 gm/dL (13.0-17.5); Lymphocytes # (A) 1.6 k/uL (1.0-4.8); Lymphocytes % (A) 22 %; MCH 31.6 pg (25.0-35.0); MCHC 34.9 g/dL (31.0-37.0); MCV 90.7 fL (80.0-100.0); Mean Platelet Volume 6.6; Monocytes # (A) 0.5 k/uL (0-1.0); Monocytes % (A) 7 %; Neutrophils # (A) 4.7 k/uL (1.3-7.7); Neutrophils % (A) 64 %; Platelet Count 316 k/uL (150-450); RDW 12.1 % (11.5-15.5); WBC 7.3 k/uL (3.8-10.6)
[2021-01-12 18:24] LABS: Partial Thromboplastin Time 25.5 sec (22.0-30.0); Prothrombin Time 10.6 sec (9.0-12.0)
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
[2021-01-12 18:40] LABS: ALT 16 U/L (4-49); AST 37 U/L (17-59); African American GFR (CKD) >90 (>60 ml/min/1.73 sqM); Albumin 4.7 g/dL (3.5-5.0); Alkaline Phosphatase 42 U/L (38-126); Anion Gap 15 mmol/L; Blood Urea Nitrogen 8 mg/dL (9-20); Calcium 9.4 mg/dL (8.4-10.2); Carbon Dioxide 20 mmol/L (22-30); Chloride 90 mmol/L (98-107); Glucose 286 mg/dL (74-99); Non-African American GFR(CKD) >90 (>60 ml/min/1.73 sqM); Sodium 125 mmol/L (137-145); Total Bilirubin 0.7 mg/dL (0.2-1.3); Total Protein 7.7 g/dL (6.3-8.2)
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
[2021-01-12 18:46] LABS: Alcohol 159 mg/dL
[2021-01-12 18:47] LABS: Potassium 4.7 mmol/L (3.5-5.1)
[2021-01-12 18:50] LABS: Glucose,Whole Blood 265 mg/dL (75-99)
[2021-01-12 20:14] VITALS: BP 121/82; PULSE 100; TEMP 97.8
== END 2021-01-12 19:44 | disposition home or self-care (01) ==
LOC: EC 17:49
DX: E87.1 Hypo-osmolality and hyponatremia (principal); S61.411A Laceration without foreign body of right hand, initial encounter; S00.211A Abrasion of right eyelid and periocular area, initial encounter; I10 Essential (primary) hypertension; E78.5 Hyperlipidemia, unspecified; K21.9 Gastro-esophageal reflux disease without esophagitis; Y90.6 Blood alcohol level of 120-199 mg/100 ml; Z79.899 Other long term (current) drug therapy; Z79.890 Hormone replacement therapy; Z23 Encounter for immunization; V89.2XXA Person injured in unspecified motor-vehicle accident, traffic, initial encounter; Y92.410 Unspecified street and highway as the place of occurrence of the external cause
CPT/HCPCS: 93005; 86900; 86901; 80053; 84484; 85025; 85610; 85730; 86850; 80320; 72170; 73130; 71045; 72125; 70450; 71260; 74177; 90715; 99285; 90471; Q9967

== ENCOUNTER → 2021-10-09 | Outpatient (CLI) | payer BC ==
--- NOTE | 2021-10-10 08:41 | NM ---
EXAMINATION TYPE: NM bone 3 phase DATE OF EXAM: 10/09/2021 COMPARISON: NONE HISTORY: S97.112A crushing injury of left great toe Triple phase bone scintigraphy was performed following the injection of 24 mCi Tc 99m MDP. Immediate images and 3 hours post injection images acquired. FINDINGS: There is intense radiotracer accumulation on all 3 phases of the study involving the distal phalanx o f the left great toe. The findings are nonspecific and could be posttraumatic in nature. Underlying o steomyelitis is not excluded in the appropriate clinical setting. No additional areas of abnormal upt valarie seen at this time. IMPRESSION: The findings involving the distal phalanx of the left great toe are nonspecific and could be posttrau matic in nature. Underlying osteomyelitis is not excluded in the appropriate clinical setting.
== END | disposition home or self-care (01) ==
LOC: RADNMMAIN 11:02
PROVIDERS: ATTEND Family Medicine
DX: L03.032 Cellulitis of left toe (principal)
CPT/HCPCS: 78315; A9503

== ENCOUNTER 2023-01-15 07:48 | Day surgery (SDC) | payer BC ==
[2023-01-12 12:39] VITALS: BMI 27.3
[~2023-01-15 07:48] MED LIST: LACTATED RINGERS 1,000 ML IV SCH
[2023-01-15 08:22] LABS: Glucose,Whole Blood 208 mg/dL (70-110)
[2023-01-15 08:25] VITALS: TEMP 97
[2023-01-15] MEDS ORDERED: PROPOFOL 10 MG/ML 20 ML VIAL IV ONE (08:47)
--- NOTE | 2023-01-15 09:06 | P.PCN ---
Date of Procedure: 01/15/23 Procedure(s) Performed: BRIEF HISTORY: Patient is a 52-year-old pleasant white male scheduled for an elective colonoscopy as a part of chronic diarrhea for the last several months duration. He has a history of chronic pancreatitis and history of heavy alcohol abuse in the past. Recently was started on Creon and still continues to have diarrhea with 10-12 bowel movements daily with no blood or mucus in the stool. He is scheduled for colonoscopy to evaluate further. PROCEDURE PERFORMED: Colonoscopy with random biopsy. PREOPERATIVE DIAGNOSIS: Chronic diarrhea. IV sedation per Anesthesia. PROCEDURE: After informed consent was obtained, the patient, was brought into the endoscopy unit. IV sedation was administered by Anesthesia under continuous monitoring. Digital rectal examination was normal. Initially the Olympus CF-160 flexible video colonoscope was then inserted in the rectum, gradually advanced into the cecum without any difficulty. Careful examination was performed as the scope was gradually being withdrawn. Ileocecal valve and the appendiceal orifice were visualized and appeared normal. Prep was excellent. Mucosa of the cecum, ascending colon, transverse colon, descending colon, sigmoid colon, and rectum appeared normal. Random biopsies were done from the ascending and descending colons colonoscopy/collagenous colitis Retroflexion was performed in the rectum and no lesions were seen. The patient tolerated the procedure well. IMPRESSION: Normal-appearing colon from rectum to cecum with no evidence of colitis or colorectal neoplasia. . RECOMMENDATIONS: Findings of this examination were discussed with the patient as well as his family. He was advised to follow with the biopsy results. In the meantime he will continue pancreatic enzyme supplements every day and start Lomotil 2 tablets 3 times daily. He'll be seen in office in 3-4 weeks..
[2023-01-15 09:15] VITALS: RESP 16
[2023-01-15 09:26] VITALS: BP 111/73; PULSE 84
== END 2023-01-15 09:51 | disposition home or self-care (01) ==
LOC: ORWHC2ENDO 07:48
PROVIDERS: ATTEND Internal Medicine Gastroenterology
DX: K63.89 Other specified diseases of intestine (principal); K52.9 Noninfective gastroenteritis and colitis, unspecified; K86.1 Other chronic pancreatitis; F10.20 Alcohol dependence, uncomplicated; I10 Essential (primary) hypertension; E78.5 Hyperlipidemia, unspecified; E07.9 Disorder of thyroid, unspecified; E11.9 Type 2 diabetes mellitus without complications; F12.90 Cannabis use, unspecified, uncomplicated; K21.9 Gastro-esophageal reflux disease without esophagitis; Z79.85 Long-term (current) use of injectable non-insulin antidiabetic drugs; Z79.4 Long term (current) use of insulin; Z79.890 Hormone replacement therapy; Z79.899 Other long term (current) drug therapy
CPT/HCPCS: 88305; 45380; J2704